=== PATIENT | female | born 1990 | race Caucasian/White ===

== ENCOUNTER 2020-09-22 05:57 | Emergency (ER) | payer SELFPAY ==
[~2020-09-22] VITALS: Ht 167.6 cm; Wt 61.2 kg
[2020-09-22] MEDS ORDERED: ZOFRAN4 MG PO (06:59)
--- OUTSIDE RECORDS SUMMARY | 2020-09-22 07:58 | XMS ---
PreManage Notification: AHSAN MURRY [employer] Events No recent Security Events currently on file CRITERIA MET - [facility] - 2 Visits in 30 Days CARE PROVIDERS There are no care providers on record at this time. Kamilla has no Care Guidelines for this patient. Radha VISIT COUNT ([address] 1 [facility] T[facility] NOTE: Visits indicate total known visits. ED/C VISIT TRACKING (12 MO.) [facility]22[facility]2020 05[facility] COMPLAINT: - VOMITING 9WKS 09/21/2020 06:53 [facility] OR TYPE: Emergency DIAGNOSES: - 9wks preg vomiting - Vomiting of , unspecified INPATIENT VISIT TRACKING (12 MO.) No inpatient visits to display in this time frame [email or web address]
== END 2020-09-22 07:40 | disposition home or self-care (01) ==
LOC: ED 05:57
DX: O21.0 Mild hyperemesis gravidarum (principal); Z3A.01 Less than 8 weeks gestation of pregnancy
CPT/HCPCS: 80053; 81001; 84703; 85025; 96374; 99284-25; J2405; J7030